=== PATIENT | male | born 1945 ===

== ENCOUNTER 2023-10-22 20:25 | Emergency (ER) | payer MEDICARE ==
[~2023-10-22] VITALS: Ht 190.5 cm; Wt 86.2 kg
[2023-10-22 21:06] LABS: BASOPHILS ABSOLUTE AUTO 0.06 K/mm3 (0.00-0.23); BASOPHILS PERCENT AUTO 1 % (0-2); EOSINOPHILS ABSOLUTE AUTO 0.15 K/mm3 (0.00-0.68); EOSINOPHILS PERCENT AUTO 1 % (0-6); Hematocrit 43.4 % (37.0-53.0); Hemoglobin 14.5 g/dL (13.5-17.5); IMMATURE GRAN ABSOLUTE AUTO 0.05 K/mm3 (0.00-0.10); IMMATURE GRAN PERCENT AUTO 1 % (0-1); LYMPHOCYTES ABSOLUTE AUTO 1.86 K/mm3 (0.84-5.20); LYMPHOCYTES PERCENT AUTO 17 % (21-46); MONOCYTES ABSOLUTE AUTO 0.81 K/mm3 (0.16-1.47); MONOCYTES PERCENT AUTO 7 % (4-13); Mean Corpuscular HGB 33.7 pg (26.0-34.0); Mean Corpuscular HGB Conc 33.4 g/dL (31.5-36.5); Mean Corpuscular Volume 101 fL (80-100); Mean Platelet Volume 10.3 fL (9.1-12.4); NEUTROPHILS ABSOLUTE AUTO 7.95 K/mm3 (1.96-9.15); NEUTROPHILS PERCENT AUTO 73 % (41-73); Platelet Count 184 K/mm3 (150-400); RDW Coefficient Variation 12.6 % (11.7-14.2); RDW Standard Deviation 47.4 fL (35.1-46.3); White Blood Cell Count 10.88 K/mm3 (4.00-11.30)
[2023-10-22] MEDS ORDERED: NiCARdipine HCL 50 MG in NS 250 ML IV SCH (21:25)
[2023-10-22 21:26] LABS: Albumin, Blood 3.9 g/dL (3.4-5.0); Albumin/Globulin Ratio 1.1 (0.8-1.8); Bilirubin, Total 0.6 mg/dL (0.1-1.0); Calcium, Blood 9.3 mg/dL (8.5-10.1); Creatinine, Blood 1.03 mg/dL (0.60-1.20); Globulin, Blood 3.7 g/dL (2.2-4.0); Potassium, Blood 3.8 mmol/L (3.5-5.5); Total Protein, Blood 7.6 g/dL (6.4-8.2)
[2023-10-22] MEDS ORDERED: TAMSULOSIN HCL0.4 M1 PO (21:39)
[2023-10-22] MEDS ORDERED: NORVASC5 MG PO (21:41)
[2023-10-22] MEDS ORDERED: Tranexamic Acid 100 ML IV ONE (21:55)
[2023-10-22] MEDS ORDERED: levETIRAcetam 1,000 MG in NS 100 ML IV ONE (21:55)
[2023-10-22 22:16] LABS: International Normalized Ratio 0.96; Prothrombin Time Results 10.3 Sec (9.7-11.5)
[2023-10-22 22:50] VITALS: BP 161/82
== END 2023-10-22 23:03 | disposition short-term general hospital (02) ==
LOC: ER 20:25
PROVIDERS: Emergency Medicine; Student in an Organized Health Care Education/Training Program
DX: S06.5X9A Traumatic subdural hemorrhage with loss of consciousness of unspecified duration, initial encounter (principal); S00.83XA Contusion of other part of head, initial encounter; S80.01XA Contusion of right knee, initial encounter; W18.30XA Fall on same level, unspecified, initial encounter; I10 Essential (primary) hypertension; I25.10 Atherosclerotic heart disease of native coronary artery without angina pectoris; Z95.1 Presence of aortocoronary bypass graft
CPT/HCPCS: 37195; 70450; 73562-RT; 80053; 85025; 85610; 85730; 93005; 93010; 96365-59; 96375-59; 99285-25; J1953; J7050

== ENCOUNTER 2024-09-04 17:49 | Emergency (ER) | payer OTHER ==
[~2024-09-04] VITALS: Ht 190.5 cm; Wt 90.7 kg
[~2024-09-04 17:49] MED LIST: NORVASC5 MG PO; TAMSULOSIN HCL0.4 M1 PO
[2024-09-04 18:08] VITALS: BP 185/90
[2024-09-04] MEDS ORDERED: Diphth,Pertuss(Acell),Tet Vac 0.5 ML VIAL IM ONE (18:10)
[2024-09-04] MEDS ORDERED: ATOR10 PO (18:34)
== END 2024-09-04 20:43 | disposition home or self-care (01) ==
LOC: ER 17:49
DX: S01.01XA Laceration without foreign body of scalp, initial encounter (principal); I10 Essential (primary) hypertension; W01.0XXA Fall on same level from slipping, tripping and stumbling without subsequent striking against object, initial encounter; Z86.73 Personal history of transient ischemic attack (TIA), and cerebral infarction without residual deficits; Z79.899 Other long term (current) drug therapy
CPT/HCPCS: 70450; 90715